=== PATIENT | male | born 1985 | race Caucasian/White ===

== ENCOUNTER 2021-05-01 03:21 | Emergency (ER) | payer SELFPAY ==
[~2021-05-01] VITALS: Ht 170.2 cm; Wt 81.6 kg
[2021-05-01 03:26] VITALS: BP_SYST 140
[2021-05-01 03:32] VITALS: BP_SYST 140
== END 2021-05-01 03:32 ==
LOC: SED 03:21
DX: F10.129 Alcohol abuse with intoxication, unspecified (principal); Y90.9 Presence of alcohol in blood, level not specified
CPT/HCPCS: 99283